=== PATIENT | male | born 1980 | race Caucasian/White ===

== ENCOUNTER → 2020-05-06 | Emergency (ER) | payer OTHER ==
[~2020-05-06] VITALS: Ht 172.7 cm; Wt 122.5 kg
[~2020-05-06] MED LIST: ACETAMINOPHEN 325 MG TABLET ONE; TDAP [DIPH/PERTUSSIS/TET] 0.5 ML VIAL IM ONE
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
[2020-05-06] MEDS: TDAP [DIPH/PERTUSSIS/TET] 0.5 ML VIAL IM ONE (21:46)
[2020-05-06] MEDS: ACETAMINOPHEN 325 MG TABLET PO ONE (21:53)
[2020-05-06 21:59] VITALS: BP 133/84
--- NOTE | 2020-05-06 22:00 | NUR ---
The patient is alert and oriented x4. Denies SOB. Respiration regular and unlabored. Patient discharged to home in stable condition. Written and verbal after care instructions given. Patient verbalizes understanding of instruction. Patient left ER in stable condition.
== END | disposition home or self-care (01) ==
LOC: ER 21:30
DX: S50.02XA Contusion of left elbow, initial encounter (principal); S09.8XXA Other specified injuries of head, initial encounter; V49.49XA Driver injured in collision with other motor vehicles in traffic accident, initial encounter; Y93.89 Activity, other specified; Y92.488 Other paved roadways as the place of occurrence of the external cause; Y99.8 Other external cause status
CPT/HCPCS: 90471; 90715; 99283; A6403